=== PATIENT | female | born 1940 | race Caucasian/White ===

== ENCOUNTER 2017-01-01 10:44 | Emergency (ER) | payer MEDICARE ==
[2017-01-01 10:51] VITALS: BP 173/73
--- NOTE | 2017-01-01 12:15 | UC ---
Farideh Younger Rebecca, scribed for Choco Lima MD on 01/01/17 at 1102 . Bite Injury/Animal HPI - HPI Summary HPI Summary: Pt is a 76 y/o F who presents to [facility] s/p cat bite. Last night, the pt was petting the cat's tail when the cat bit her on the RUE on the forearm. Confirms her cat is UTD with vaccinations. Pt reports she immediately washed it with soap and water. Denies fever, chills. Is not on a blood thinner. Similar episode in September during which her Tetanus was UTD. Allergies to Amoxicillin. - History of Current Complaint Chief Complaint: UCBiteInjury Stated Complaint: CAT BITE Time Seen by Provider: 01/01/17 10:53 Hx Obtained From: Patient Hx Last Menstrual Period: 05/1999 Onset/Duration: Lasting Days - Last night, Still Present Type of Bite: Animal Has Animal Been Immunized?: Yes Character: Puncture Aggravating Factor(s): Nothing Alleviating Factor(s): Nothing Associated Signs And Symptoms: Positive: Negative - Allergies/Home Medications Allergies/Adverse Reactions: Allergies Allergy/AdvReac Type Severity Reaction Status Date / Time Amoxicillin [From Augmentin] Allergy Severe "FLU Verified 01/01/17 10:51 SYMPTOMS" Clavulanic Acid Allergy Severe "FLU Verified 01/01/17 10:51 [From Augmentin] SYMPTOMS" PMH/Surg Hx/FS Hx/Imm Hx Endocrine History: Dyslipidemia - HLD Cardiovascular History: Hypertension - Surgical History Surgical History: Yes Surgery Procedure, Year, and Place: LOWER SPINE DISK SURGERY - Family History Known Family History: Negative: Diabetes - Social History Alcohol Use: Occasionally Substance Use Type: None Smoking Status (MU): Former Smoker - Immunization History Most Recent Influenza Vaccination: 02/2014 Most Recent Tetanus Shot: UNKNOWN Most Recent Pneumonia Vaccination: 2012 Review of Systems Constitutional: Negative Skin: Other - Cat bite to the RUE on the forearm Eyes: Negative ENT: Negative Respiratory: Negative Cardiovascular: Negative Gastrointestinal: Negative Genitourinary: Negative Motor: Negative Neurovascular: Negative Musculoskeletal: Negative Neurological: Negative Psychological: Negative All Other Systems Reviewed And Are Negative: Yes Physical Exam Triage Information Reviewed: Yes Vital Signs: Initial Vital Signs Temp 98.9 F 01/01/17 10:46 Pulse 71 01/01/17 10:46 Resp 16 01/01/17 10:46 BP 173/73 08/06/17 10:46 Pulse Ox 100 01/01/17 10:46 Vital Signs Reviewed: Yes - Additional Comments The patient is well-nourished in no acute distress and in no acute pain. The skin is warm and dry. There are two puncture wilde to the RUE. One on the radial aspect on the dorsum and one on the ulnar aspect. The one on the radial aspect is clean and appears uninfected. The wound on the ulnar aspect is swollen , erythematous and warm to touch with no fluctuance. Distal neurovascular is intact. Respiratory: Chest is non-tender. Lungs are clear to auscultation and breath sounds are symmetrical and equal. Cardiovascular: Hear is regular rate and rhythm. There is no murmur or rub auscultated. There is no peripheral edema and pulses are symmetrical and equal. Musculoskeletal: Extremities are non-tender with full range of motion. There is good capillary refill. There is no peripheral edema or calf tenderness elicited. Neurological: Patient is alert and oriented to person, place and time. Psychiatric: The patient has an appropriate affect and does not exhibit any anxiety or depression. Bite Injury Course/Dx - Course Course Of Treatment: Pt is a 76 y/o F who presents to [facility] s/p cat bite. Last night, the pt was petting the cat's tail when the cat bit her on the RUE on the forearm. Confirms her cat is UTD with vaccinations. Pt reports she immediately washed it with soap and water. Denies fever, chills. Is not on a blood thinner. Similar episode in September during which her Tetanus was UTD. Allergies to Amoxicillin. There does not appear to be an abscess. Pt will be D/C to home with Dx of infected cat bite and an Rx for a 10 day supply of Doxycycline from [facility]. She understands and agrees. Patient medications reviewed this visit. Elevated BP noted and the pt was advised to f/u with her PCP. - Differential Dx/Diagnosis Differential Diagnosis/HQI/PQRI: Cellulitis, Other - abscess Provider Diagnoses: Infected cat bite. Discharge - Discharge Plan Condition: Stable Disposition: HOME Prescriptions: DOXYcycline CAP(*) [DOXYcycline 100MG CAP(*)] 100 mg PO BID #29 cap Patient Education Materials: Animal Bite (ED) Referrals: Lazaro Isabel MD [Primary Care Provider] - 3 Days Additional Instructions: Use warm soaks on the wounds. Look for signs of infection. Return to Urgent Care or Emergency Department for any returning or worsening symptoms. The documentation as recorded by the Farideh ogden Rebecca accurately reflects the service I personally performed and the decisions made by me, Choco Lima MD.
== END 2017-01-01 11:12 | disposition home or self-care (01) ==
LOC: UCEAST 10:44
DX: S51.851A Open bite of right forearm, initial encounter (principal); L08.9 Local infection of the skin and subcutaneous tissue, unspecified; W55.01XA Bitten by cat, initial encounter; Y93.89 Activity, other specified; Y92.9 Unspecified place or not applicable; Y99.9 Unspecified external cause status; Z87.891 Personal history of nicotine dependence
CPT/HCPCS: 99212; G0463

== ENCOUNTER → 2017-07-19 08:47 | Day surgery (SDC) | payer MEDICARE ==
[~2017-07-19 08:47] MED LIST: Acetaminophen TAB* 325 MG PO PRN; Buffered Lidocaine 0.9% SYRIN* 5 ML/SYR SYRINGE INTRADERM ONE; Cyclopentolate 1% OPTH.SOL* 2 ML BTL ONE; Ketorolac 0.5% OPHTH (NF) 0.5 % 5 ML BTL ONE; Lidocaine 1% MPF* 2 ML VIAL ONE; Lidocaine 2% EPI 1:200000 MPF* 20 ML VIAL ONE; Midazolam* 1 MG/ML 2 ML VIAL (2 MG) ONE; Neomycin/Polymy/Dex OPTH.SUSP* MAXITROL 0.1% 5 ML ONE; Phenylephrine 2.5% OPTH.SOL* 2 ML BTL ONE; Povidone Iodine 5% OPTH* 30 ML BTL ONE; Proparacaine 0.5% OPHTH.SOL* 15 ML BTL ONE; acetaZOLAMIDE TAB* 250 MG ONE
[2017-07-19 11:08] VITALS: BP 133/64
--- NOTE | 2017-07-19 15:30 | OP ---
DATE OF OPERATION: 07/19/2017 - [facility] DATE OF : 1940. SURGEON: Mike Marino M.D. PREOPERATIVE DIAGNOSIS: Cataract right eye. POSTOPERATIVE DIAGNOSIS: Cataract right eye. OPERATIVE PROCEDURE: Extracapsular cataract extraction with intraocular lens implant right eye. DESCRIPTION OF PROCEDURE: The patient was brought to the operating room after being given 1/2% Alcaine with epinephrine drops in the preoperative area. The eye was prepped and draped in the usual sterile fashion. Sterile drape and eyelid speculum were placed. Again, topical 1/2% Alcaine with epinephrine was given. A paracentesis incision was made at the 9 o'clock position with the No.75 blade. Clear cornea incision 2.2 x 2.2-mm was created at the 12 o'clock position starting at the anterior limbus using the 2.2-mm keratome. The anterior chamber was irrigated with 0.4 mL of 1% non-preservative intracameral lidocaine and filled with DisCoVisc. A capsulorrhexis was completed using the cystotome and the Utrata forceps. Hydrodissection was performed with balanced salt solution. The lens nucleus was removed with the Phacoemulsification handpiece without incident. Cortex was removed with the irrigation-aspiration handpiece. The capsular bag was re-inflated using DisCoVisc and an [id number] implant was inserted with the shooter. The irrigation-aspiration handpiece was used to remove all residual DisCoVisc. The eye was refilled with balanced salt solution and the wound checked and found to be watertight. Topical Maxitrol drops were given. [id number]/[facility] #: [id number] [facility]
== END | disposition home or self-care (01) ==
LOC: OREAST 08:47
PROVIDERS: ATTEND Specialist
DX: H25.811 Combined forms of age-related cataract, right eye (principal); H35.371 Puckering of macula, right eye; Z87.891 Personal history of nicotine dependence; I10 Essential (primary) hypertension; E78.5 Hyperlipidemia, unspecified; I44.1 Atrioventricular block, second degree; R00.2 Palpitations; E85.9 Amyloidosis, unspecified
CPT/HCPCS: A9270-GY; J2250; V2632

== ENCOUNTER 2017-08-02 09:01 | Day surgery (SDC) | payer MEDICARE ==
[~2017-08-02 09:01] MED LIST changes: -Cyclopentolate 1% OPTH.SOL* 2 ML BTL ONE; -Ketorolac 0.5% OPHTH (NF) 0.5 % 5 ML BTL ONE; -Lidocaine 1% MPF* 2 ML VIAL ONE; -Lidocaine 2% EPI 1:200000 MPF* 20 ML VIAL ONE; -Midazolam* 1 MG/ML 2 ML VIAL (2 MG) ONE; -Neomycin/Polymy/Dex OPTH.SUSP* MAXITROL 0.1% 5 ML ONE; -Phenylephrine 2.5% OPTH.SOL* 2 ML BTL ONE; -Povidone Iodine 5% OPTH* 30 ML BTL ONE; -Proparacaine 0.5% OPHTH.SOL* 15 ML BTL ONE; -acetaZOLAMIDE TAB* 250 MG ONE
[2017-08-02] MEDS ORDERED: Midazolam* 1 MG/ML 2 ML VIAL (2 MG) ONE ×2 (11:21→11:30)
[2017-08-02 11:55] VITALS: BP 140/71
--- NOTE | 2017-08-02 13:14 | OP ---
DATE OF OPERATION: 08/02/2017. DATE OF : 1940. SURGEON: Mike Marino M.D. PREOPERATIVE DIAGNOSIS: Cataract left eye. POSTOPERATIVE DIAGNOSIS: Cataract left eye. OPERATIVE PROCEDURE: Extracapsular cataract extraction with intraocular lens implant left eye. PROCEDURE: The patient was brought to the operating room after being given 1/2% Alcaine with epineph rine drops in the preoperative area. The eye was prepped and draped in the usual sterile fashion. S terile drape and eyelid speculum were placed. Again, topical 1/2% Alcaine with epinephrine was given . A paracentesis incision was made at the 3 o'clock position with the No.75 blade. Clear cornea inc ision 2.2 x 2.2-mm was created at the 6 o'clock position starting at the anterior limbus using the 2. 2-mm keratome. The anterior chamber was irrigated with 0.4 mL of 1% non-preservative intracameral li docaine and filled with DisCoVisc. A capsulorrhexis was completed using the cystotome and the Utrata forceps. Hydrodissection was performed with balanced salt solution. The lens nucleus was removed wi th the Phacoemulsification handpiece without incident. Cortex was removed with the irrigation-aspira tion handpiece. The capsular bag was re-inflated using DisCoVisc and an SN60WF 20.5 implant was inse rted with the shooter. The irrigation-aspiration handpiece was used to remove all residual DisCoVisc . The eye was refilled with balanced salt solution and the wound checked and found to be watertight. Topical Maxitrol drops were given. [id number]/[facility] #: [id number]
[2017-08-02] MEDS ORDERED: Lidocaine 1% MPF* 2 ML VIAL ONE (13:42)
[2017-08-02] MEDS ORDERED: Phenylephrine 2.5% OPTH.SOL* 2 ML BTL ONE (13:42)
[2017-08-02] MEDS ORDERED: Lidocaine 2% EPI 1:200000 MPF* 20 ML VIAL ONE (13:42)
[2017-08-02] MEDS ORDERED: Cyclopentolate 1% OPTH.SOL* 2 ML BTL ONE (13:42)
[2017-08-02] MEDS ORDERED: Proparacaine 0.5% OPHTH.SOL* 15 ML BTL ONE (13:42)
[2017-08-02] MEDS ORDERED: Ketorolac 0.5% OPHTH (NF) 0.5 % 5 ML BTL ONE (13:42)
[2017-08-02] MEDS ORDERED: Neomycin/Polymy/Dex OPTH.SUSP* MAXITROL 0.1% 5 ML ONE (13:42)
[2017-08-02] MEDS ORDERED: Povidone Iodine 5% OPTH* 30 ML BTL ONE (13:42)
[2017-08-02] MEDS ORDERED: acetaZOLAMIDE TAB* 250 MG ONE (13:42)
== END 2017-08-02 11:59 | disposition home or self-care (01) ==
LOC: OREAST 09:01
PROVIDERS: ATTEND Specialist
DX: H25.812 Combined forms of age-related cataract, left eye (principal); H35.371 Puckering of macula, right eye; Z87.891 Personal history of nicotine dependence; I10 Essential (primary) hypertension; E78.2 Mixed hyperlipidemia; R00.2 Palpitations; I44.1 Atrioventricular block, second degree; M85.9 Disorder of bone density and structure, unspecified
CPT/HCPCS: A9270-GY; J2250; V2632